=== PATIENT | male | born 1990 | race Caucasian/White ===

== ENCOUNTER 2019-09-04 16:20 | Emergency (ER) | payer OTHER ==
[~2019-09-04] VITALS: Ht 177.8 cm; Wt 77.1 kg
[2019-09-04 16:26] VITALS: BP 129/76
[2019-09-04] MEDS ORDERED: IBUPROFEN 800 MG TAB PO ONE (17:30)
== END 2019-09-04 17:43 | disposition home or self-care (01) ==
LOC: ER 16:20
DX: S63.91XA Sprain of unspecified part of right wrist and hand, initial encounter (principal); W18.39XA Other fall on same level, initial encounter; Y93.89 Activity, other specified; Y92.89 Other specified places as the place of occurrence of the external cause; Y99.0 Civilian activity done for income or pay
CPT/HCPCS: 29125; 73130